=== PATIENT | female | born 1965 | race Caucasian/White ===

== ENCOUNTER → 2020-12-04 12:23 | Outpatient (CLI) | payer OTHER, SELFPAY ==
--- NOTE | ~2020-12-04 | DEXA_ITS ---
Bone Density Report Name: Cristina Lu Age: 55 Sex: Female Ethnicity: White Date of : 1965 Indication: osteopenia; height loss; prior fracture; postmenopausal Referring Provider: Yvonne, Della Diaz Study: Bone densitometry was performed. Exam Date: December 04, 2020 Accession number: [id number] Bone Density: Region BMD T-score Z-score Classification AP Spine (L1, L2, L3) 0.915 -0.9 0.3 Normal Femoral Neck (Left) 0.568 -2.5 -1.4 Osteoporosis Total Hip (Left) 0.801 -1.2 -0.3 Osteopenia Femoral Neck (Right) 0.604 -2.2 -1.0 Osteopenia Total Hip (Right) 0.787 -1.3 -0.5 Osteopenia Total Hip Mean 0.794 -1.3 -0.4 Osteopenia World Health Organization criteria for BMD impression classify patients as: Normal (T-score at or above -1.0), Osteopenia (T-score between -1.0 and -2.5), or Osteoporosis (T-score at or below -2.5). 10-year Fracture Risk: FRAX not reported because: Some T-score for Spine Total or Hip Total or Femoral Neck at or below -2.5 Previous Exams: Region Exam Age BMD T-score BMD Change BMD Change Date g/cm2 vs Baseline vs Previous AP Spine(L1, L2, L3) 12/04/2020 55 0.915 -0.9 0.013 0.013 07/30/2018 53 0.902 -1.1 Total Hip(Left) 12/04/2020 55 0.801 -1.2 0.011 0.011 07/30/2018 53 0.791 -1.2 Total Hip(Right) 12/04/2020 55 0.787 -1.3 0.010 0.010 07/30/2018 53 0.777 -1.4 *Denotes significance at 95% confidence level, LSC for AP Spine = 0.022 g/cm2, LSC for Total Hip = 0.027 g/cm2 Clinical Information Provided by Patient: Has had a low trauma fracture Has 3 or more alcoholic drinks per day Has used the following medications: Vitamin D Patient maximum height was 64 Menopause Age: 48 No regular weight bearing exercise Does not regularly consume dairy products Drinks caffeinated beverages Onset of menses at age 10 Number of children 2 Impression: The patient has established osteoporosis, based on the Left Femoral Neck T-score and the existence of a prior fracture. The patient has risk factors, including: excessive alcohol use, previous fracture. No significant bone loss was observed. Discussion: HIGH RISK OF FRACTURE. BONE DENSITY IS UNDESIRABLY LOW AT ONE OR MORE SKELETAL SITES, CONSISTENT WITH POSTMENOPAUSAL OSTEOPOROSIS. This patient's lowest T-score, in a patient who has previously fractured, meets the World Health Organization's (WHO) criteria for severe osteop
--- NOTE | ~2020-12-04 | MM_ITS ---
EXAMINATION: MM screening garcia BI w amari HISTORY: Screening TECHNIQUE: Craniocaudal and mediolateral oblique 3-D tomosynthesis images were obtained and synthetic 2-D images were generated. CAD analysis was submitted and interpreted. COMPARISON: Comparison to multiple prior studies sequentially, with oldest reviewed study dated 08/12. BREAST PARENCHYMAL COMPOSITION: The breasts are heterogenously dense, which may obscure small masses. FINDINGS: There are developing asymmetries centered in the lower inner quadrant of the right breast a nteriorly. There is an adjacent tissue marker. The left breast is stable without evidence for maligna ncy. IMPRESSION: 1. Developing right breast asymmetries. 2. Additional mammographic views and possible breast ultrasound are recommended. BI-RADS Category 0: Incomplete: Needs additional imaging evaluation. Reviewed, dictated and finalized at location A. IMPRESSION: 1. Developing right breast asymmetries. 2. Additional mammographic views and possible breast ultrasound are recommended . BI-RADS Category 0: Incomplete: Needs additional imaging evaluation.
== END ==
PROVIDERS: PCP Family Medicine; Visit Provider Nurse Practitioner Family
DX: Z12.31 Encounter for screening mammogram for malignant neoplasm of breast (principal); Z78.0 Asymptomatic menopausal state; M85.89 Other specified disorders of bone density and structure, multiple sites; M81.0 Age-related osteoporosis without current pathological fracture; R92.8 Other abnormal and inconclusive findings on diagnostic imaging of breast
CPT/HCPCS: 77063; 77067; 77080

== ENCOUNTER → 2021-01-23 14:16 | Outpatient (CLI) | payer OTHER, SELFPAY ==
--- NOTE | ~2021-01-23 | MMUS_ITS ---
EXAMINATION: MM diagnostic garcia RT w amari, US breast RT complete HISTORY: Follow-up right breast asymmetry TECHNIQUE: Additional 3-D tomosynthesis images of the right breast were performed and synthetic 2-D i mages were generated. CAD analysis was submitted and interpreted. High resolution complete right vesta st ultrasound was performed. COMPARISON: Comparison to multiple prior studies sequentially, with oldest reviewed study dated 09/16. BREAST PARENCHYMAL COMPOSITION: The breasts are heterogenously dense, which may obscure small masses. FINDINGS: MAMMOGRAPHIC FINDINGS: There is an enlarging mass in the lower inner quadrant of the right breast near the nipple with adjac ent tissue marker. This mass has a lobulated bilobed appearance. No suspicious calcifications or arch itectural distortion. ULTRASOUND: Right breast ultrasound: At 6:00, 2 cm from the nipple, there is an oval hypoechoic mass measuring 5 mm with parallel orientation, no significant posterior features. Medial to the areola there is a bilo bed heterogeneous mass measuring 2.3 x 1.5 x 0.8 cm with mixed posterior attenuation. No internal vas cularity. At 5:00, 2 cm from the nipple, there is an oval hypoechoic 4 mm mass without posterior feat ures or internal vascularity. IMPRESSION: 1. Enlarging lobulated heterogeneous right breast mass medial to the areola measuring up to 2.3 cm. 2. Ultrasound-guided right breast biopsy recommended. 3: Additional masses of the right breast at 6:00 and 5:00 are likely benign. Six-month follow-up rig ht breast ultrasound recommended. BI-RADS category 4, suspicious findings. Reviewed, dictated and finalized at location A. IMPRESSION: 1. Enlarging lobulated heterogeneous right breast mass medial to the areola lam suring up to 2.3 cm. 2. Ultrasound-guided right breast biopsy recommended. 3: Additional masses of the right breast at 6:00 and 5:00 are likely benign. S ix-month follow-up right breast ultrasound recommended. BI-RADS category 4, suspicious findings.
--- NOTE | ~2021-01-23 | XR_ITS ---
XR hip RT min 2V DATE: 01/23/2021 15:10 INDICATION: Right hip pain TECHNIQUE: AP and lateral views COMPARISON: None FINDINGS: Small likely chronic calcification at the superior aspect of the right greater trochanter. No recent right hip fracture or dislocation or evidence of avascular necrosis or bone destruction of the right hip. The pubic symphysis and sacral iliac joints are intact. Severe degenerative disc disease at L4-5 and L5-S1. IMPRESSION: Severe degenerative disc disease at L4-5 and L5-S1 Reviewed, dictated and finalized at location B.
== END ==
PROVIDERS: PCP Family Medicine; Visit Provider Family Medicine
DX: N63.15 Unspecified lump in the right breast, overlapping quadrants (principal); M47.817 Spondylosis without myelopathy or radiculopathy, lumbosacral region; M25.551 Pain in right hip
CPT/HCPCS: 73502; 76641; 77061; 77065; G0279